=== PATIENT | female | born 1975 | race Caucasian/White ===

== ENCOUNTER → 2020-02-24 | Outpatient (CLI) | payer SELFPAY | LOC: M LABSMTC 13:38 | PROVIDERS: ATTEND Pediatrics | DX: Z20.828 Contact with and (suspected) exposure to other viral communicable diseases (principal) ==

== ENCOUNTER → 2020-06-25 | Outpatient (CLI) | payer OTHER ==
--- NOTE | 2020-06-25 13:07 | REP ---
INDICATION: BRUCE DIAG MAMMO/R SIDE IMPLANT POSSIBLY LEAKING; RIGHT BREAST IMPLANT POSSIBLY LOOSING SALINE. COMPARISON: No comparison imaging is available. TECHNIQUE: Implant included and implant displaced views are obtained of each breast. Study is augmented by 3D tomography imaging obtained bilaterally. A targeted right breast sonogram is performed. This mammogram was interpreted with the aid of an FDA-approved computer-aided detection system. FINDINGS: Bilateral retropectoral saline implants are observed. Implant margins are smooth. There is infolding of the right saline implant which appears somewhat smaller than the left. This corresponds with the patient's perception that the right-sided implant may be getting smaller or leaking. Breast parenchyma shows scattered fibroglandular tissue elements moderate in degree. No breast mass is seen on either side. No architectural distortion or microcalcification is seen. 3D tomography shows no additional abnormality. Whole breast right-sided sonography is performed. Some areas of contralateral right breast scanning or performed for comparison. No Carrie implant effusion is noted on either side. The edges of the right breast implant are somewhat irregular consistent with the infolding seen mammographically. The anteroposterior diameter of the right implant is smaller than the left. No suspicious sonographic breast parenchymal abnormality is seen. IMPRESSION: BI-RADS category 2 benign bilateral breast imaging findings. The retropectoral saline implant on the right appears somewhat smaller and shows a fold corresponding with the patient's impression that it is decreased in size. No Carrie implant effusion is seen. No suspicious mammographic or sonographic finding. Clinical follow-up is advised. The patient states she had a clinical breast exam in May of 2020. This patient's estimated Tyrer-Cuzick lifetime risk assessment for breast cancer is 18.9%. <Electronically signed by Norman Caro > 06/25/20 [id number]
== END ==
LOC: M WHC 11:00
PROVIDERS: ATTEND Physician Assistant
DX: Z98.82 Breast implant status (principal)

== ENCOUNTER → 2021-12-28 | Outpatient (CLI) | payer OTHER ==
[2021-12-28 11:04] LABS: BASO % 0.9 % (0.0-1.0); EOS # 0.1 10^3/uL (0.0-0.5); EOS % 1.4 % (0.0-3.0); HEMATOCRIT 38.4 % (36.0-47.0); HEMOGLOBIN 12.4 g/dl (12.0-15.5); LYMPH # 1.6 10^3/uL (1.5-5.0); LYMPH % 36.8 % (24.0-44.0); MEAN CORPUSCULAR HEMOGLOBIN 31.6 pg (27.0-33.0); MEAN CORPUSCULAR HGB CONC 32.3 g/dl (32.0-36.5); MEAN CORPUSCULAR VOLUME 97.7 fl (80.0-96.0); MONO # 0.3 10^3/uL (0.0-0.8); MONO % 7.5 % (2.0-8.0); NEUTROPHILS # 2.3 10^3/uL (1.5-8.5); NEUTROPHILS % 53.2 % (36.0-66.0); PLATELET COUNT, AUTOMATED 256 10^3/uL (150-450); RED BLOOD COUNT 3.93 10^6/uL (4.00-5.40); WHITE BLOOD COUNT 4.4 10^3/uL (4.0-10.0)
[2021-12-28 11:34] LABS: HEMOGLOBIN A1c 5.2 %
[2021-12-28 12:07] LABS: ALT/SGPT 29 U/L (12-78); BILIRUBIN,TOTAL 0.5 MG/DL (0.2-1.0); BLOOD UREA NITROGEN 15 MG/DL (7-18); CALCIUM LEVEL 9.3 MG/DL (8.5-10.1); CARBON DIOXIDE LEVEL 27 MEQ/L (21-32); CHLORIDE LEVEL 106 MEQ/L (98-107); CHOLESTEROL LEVEL 228 MG/DL (<200); CHOLESTEROL RISK RATIO 2.375 (<5); CREATININE FOR GFR 0.92 MG/DL (0.55-1.30); FERRITIN 64 NG/ML (8-252); GLOMERULAR FILTRATION RATE > 60.0 (>58); GLUCOSE, FASTING 88 MG/DL (70-100); HDL CHOLESTEROL 96 MG/DL (>40); IRON (FE) 47 UG/DL (50-170); LDL CHOLESTEROL 118 MG/DL (<100); NON-HDL-C 132 MG/DL; PERCENT SATURATION 13.8 % (13.2-45.0); POTASSIUM SERUM 4.2 MEQ/L (3.5-5.1); SODIUM LEVEL 140 MEQ/L (136-145); THYROID STIMULATING HORMONE 0.975 uIU/ML (0.358-3.740); TOTAL IRON BINDING CAPACITY 341 UG/DL (250-450); TOTAL PROTEIN 7.1 GM/DL (6.4-8.2); TRIGLYCERIDES LEVEL 69 MG/DL (<150)
[2021-12-28 12:48] LABS: FOLLICLE STIMULATING HORMONE 13.7 mIU/mL; LUTEINIZING HORMONE 5.5 mIU/mL; TOTAL 25(OH) VITAMIN D 36.4 NG/ML (30.0-100.0)
== END ==
LOC: M WUC 08:31
PROVIDERS: ATTEND Physician Assistant
DX: N95.1 Menopausal and female climacteric states (principal); Z13.220 Encounter for screening for lipoid disorders; Z13.29 Encounter for screening for other suspected endocrine disorder